=== PATIENT | male | born 1995 | race African-American/Black ===

== ENCOUNTER 2021-02-22 11:19 | Emergency (ER) | payer BC ==
[~2021-02-22] VITALS: Ht 177.8 cm; Wt 65.8 kg
--- NOTE | 2021-02-22 11:45 | NUR ---
Patient in Room 5A. MD at bedside for MSE at this time.
[2021-02-22 11:48] VITALS: BP 133/90
--- NOTE | 2021-02-22 11:53 | NUR ---
Patient discharged to home in stable condition, ambulate out of ED with steady gait. Written and verbal after care instructions given. Patient verbalizes understanding of instructions. Stressed follow up or return to ER for worsening s/s.
== END 2021-02-22 11:57 | disposition home or self-care (01) ==
LOC: ER 11:19
DX: S13.9XXA Sprain of joints and ligaments of unspecified parts of neck, initial encounter (principal); V49.50XA Passenger injured in collision with unspecified motor vehicles in traffic accident, initial encounter; Y92.410 Unspecified street and highway as the place of occurrence of the external cause; R03.0 Elevated blood-pressure reading, without diagnosis of hypertension
CPT/HCPCS: A4663

== ENCOUNTER 2022-08-01 15:52 | Emergency (ER) | payer BC ==
[~2022-08-01] VITALS: Ht 177.8 cm; Wt 68.0 kg
[2022-08-01] MEDS ORDERED: IBUPROFEN 600 MG TABLET PO ONE (17:15)
[2022-08-01] MEDS ORDERED: IBUPROFEN 600 MG TABLET ONE (17:48)
[2022-08-01] MEDS ORDERED: NAPR-1192 PO (18:28)
--- NOTE | 2022-08-01 18:37 | NUR ---
Patient discharged to home in stable condition. Written and verbal after care instructions given. Patient verbalizes understanding of instructions. Stressed follow up or return to ER for worsening s/s.
== END 2022-08-01 18:41 | disposition home or self-care (01) ==
LOC: ER 15:52
DX: S86.011A Strain of right Achilles tendon, initial encounter (principal); Y93.41 Activity, dancing; Y92.89 Other specified places as the place of occurrence of the external cause
CPT/HCPCS: 73590; 73610; 73630; A4663